=== PATIENT | female | born 1955 | race Caucasian/White ===

== ENCOUNTER 2018-04-24 08:33 | Outpatient (CLI) | payer OTHER ==
--- NOTE | 2018-04-24 10:42 | MRI ---
MRI BRAIN AND INTERNAL AUDITORY CANALS WITH AND WITHOUT CONTRAST: HISTORY: 63-year-old female with: Headache. H90.42, sensorineural hearing loss, unilateral, left ear, with unrestricted hearing on the contralate ral side. H93.13, tinnitus, bilateral. TECHNIQUE: Multiple sequences obtained in axial, sagittal, and coronal planes; both whole brain images and thin slices through the IAC's, pre and post IV injection of gadolinium-based contrast agent: 17 mL MultiHa nce. FINDINGS: The ventricles are normal in size and configuration. There is no major intraaxial signal abnormality , restricted diffusion, abnormal intraaxial enhancement, mass, midline shift or any other mass effect , recent intraaxial hemorrhage, or extraaxial fluid collection. There is no abnormal enhancement, mass, or morphologic abnormality, involving the cerebellopontine an gles, 7th-8th nerve complexes, internal auditory canals, cochleae, vestibules, vestibular aqueducts, or semicircular canals. IMPRESSION: Normal. jn[] POS: [facility]
[2018-04-24] MEDS ORDERED: Gadobenate Dimeglumine 529 MG/1 ML (20ML VIAL) ONE (13:23)
== END 2018-04-24 08:34 | disposition home or self-care (01) ==
LOC: MRI 08:33
PROVIDERS: ATTEND Otolaryngology Otolaryngic Allergy
DX: H93.13 Tinnitus, bilateral (principal); H90.42 Sensorineural hearing loss, unilateral, left ear, with unrestricted hearing on the contralateral side
CPT/HCPCS: 70553; 82565; A9577

== ENCOUNTER 2018-07-05 07:42 | Outpatient (CLI) | payer OTHER ==
--- NOTE | 2018-07-05 08:35 | ULT ---
ULTRASOUND ABDOMEN COMPLETE: HISTORY: Abdominal bloating and generalized abdominal pain, R14.0 in a 63-year-old female. FINDINGS: The gallbladder is surgically absent. The hepatic echogenicity is normal. The kidneys have normal e chogenicity, and there is no hydronephrosis. There is no splenomegaly. There is no abdominal aortic aneurysm. The distal abdominal aorta has very irregular, thick patel. No free fluid is identified. The inferior vena cava is visualized. The pancreas is obscured by shadowing from bowel gas. There is no biliary dilation. The common duct caliber is 6 mm. IMPRESSION: 1) No pathology identified. 2) Pancreas not visualized. 3) Atherosclerosis of abdominal aorta. 4) status post cholecystectomy. jn R POS: [facility]
== END 2018-07-05 07:43 | disposition home or self-care (01) ==
LOC: SCSULT 07:42
PROVIDERS: ATTEND Internal Medicine Gastroenterology
DX: R10.9 Unspecified abdominal pain (principal); R14.0 Abdominal distension (gaseous); I70.0 Atherosclerosis of aorta; Z90.49 Acquired absence of other specified parts of digestive tract
CPT/HCPCS: 76700

== ENCOUNTER 2018-07-17 14:26 | Outpatient (CLI) | payer OTHER ==
[~2018-07-17 14:26] MED LIST: Iopamidol 370 76% 100 ML VIAL ONE
--- NOTE | 2018-07-17 15:33 | CT ---
CT ABDOMEN AND PELVIS WITH IV CONTRAST 07/17/2018 CLINICAL INFORMATION: Bloating and gas. Abdominal pain and diarrhea. COMPARISON: None. Technique: Multiple contiguous axial CT images are obtained through the abdomen and pelvis with IV contrast. Cor onal reformatted images are provided. FINDINGS: Lower Chest: within normal limits. Vessels: Minimal vascular calcifications are seen in the abdominal aorta and iliac arteries. Abdomen: Portal vein:Patent Gallbladder: Postcholecystectomy changes. Liver: within normal limits. Pancreas: within normal limits. Spleen: within normal limits. Adrenals: within normal limits. Kidneys: within normal limits. Peritoneum: No ascites or free air; no fluid collection. Bowel: Small bowel is normal in caliber. There is a small bowel intussusception seen within the right lower quadrant without evidence of a bowel obstruction. There is a small to moderate amount of retained fecal material seen throughout the colon.The appendix is visualized and normal in caliber. Mesentery and Retroperitoneum: No enlarged mesenteric or retroperitoneal lymph nodes. Abdominal Wall: within normal limits. Pelvis: Reproductive Organs: There is evidence of hysterectomy. A 1.6 cm hypodense cystic lesion is seen in t he right pelvis demonstrating fluid attenuation and is most likely related to a small right ovarian cyst. Pelvis: No mass or lymphadenopathy is seen. Bladder: Mostly decompressed but grossly normal in appearance. Bones: Mild degenerative changes are seen in the spine. IMPRESSION: 1. No acute findings are seen in the abdomen or pelvis. 2. Small bowel intussusception involving a loop of small bowel in the right lower quadrant. There is no mass in this region, and no evidence of a bowel obstruction. This could change be a transient finding. 3. Small to moderate retained fecal tail seen throughout the colon. 4. Cholecystectomy and hysterectomy. 5. Small right ovarian cyst.
== END 2018-07-17 14:27 | disposition home or self-care (01) ==
LOC: CT 14:26
PROVIDERS: ATTEND Internal Medicine Gastroenterology
DX: R10.9 Unspecified abdominal pain (principal); R14.0 Abdominal distension (gaseous); K56.1 Intussusception; N83.201 Unspecified ovarian cyst, right side; K59.00 Constipation, unspecified; Z90.49 Acquired absence of other specified parts of digestive tract; Z90.710 Acquired absence of both cervix and uterus
CPT/HCPCS: 74177; 82565

== ENCOUNTER 2018-08-13 08:03 | Outpatient (CLI) | payer OTHER ==
--- NOTE | 2018-08-13 11:03 | CT ---
CT ABDOMEN AND PELVIS WITH AND WITHOUT IV CONTRAST: (CT ENTEROGRAPHY) Date: 08/13/18 HISTORY: 63-year-old female with abdominal bloating, abdominal pain at multiple sites, intussusception of inte vinod. COMPARISON: CT abdomen/pelvis with oral and IV contrast dated 07/17/18. FINDINGS: The lung bases are clear. The patient is post cholecystectomy. The liver, spleen, pancreas, adrenal g lands, and kidneys are normal. The patient is post hysterectomy. No free air, free fluid, or lymphade nopathy seen in the abdomen or pelvis. The aorta is of normal caliber without aneurysm or dissection. There are mild degenerative changes in the spine. There is no abnormal dilatation of the small bowel loops. No abnormal postcontrast enhancement is see n. The previously noted intussusception in the small bowel loop in the right lower quadrant is not id entified on the current exam. There is fecal material in the colon and rectum. Small right ovarian cyst is stable, measuring about 15 mm. IMPRESSION: No evidence of acute process or intussusception. POS: [facility]
== END 2018-08-13 08:04 | disposition home or self-care (01) ==
LOC: CT 08:03
PROVIDERS: ATTEND Physician Assistant Medical
DX: K56.1 Intussusception (principal); R14.0 Abdominal distension (gaseous)
CPT/HCPCS: 74178